=== PATIENT | male | born 1940 | race Caucasian/White ===

== ENCOUNTER 2017-12-11 15:13 | Observation (INO) ==
--- NOTE | 2017-12-11 15:23 | ED ---
HPI General Chief Complaint: Syncope Stated Complaint: Cardiac Time Seen by Provider: 12/11/17 15:16 Source: patient Mode of arrival: ambulatory Limitations: no limitations History of Present Illness HPI narrative: Patient arrived via private vehicle driven by his family, apparently while he was at a course trying to just practices golf swing with a bucket of balls, he got dizzy and fell over 3 different times and people that were standing standing by were about to call 911 but he just called his family that was just in the lobby of the golf course. Patient was brought into the emergency department for further evaluation. Patient does complain of a little bit of heart palpitations but it just comes and goes. Patient denies any headache visual changes chest pain back pain or abdominal pain. Patient denies any recent nausea vomiting diarrhea. However during the these episodes. The patient got very diaphoretic according to the family MD complaint: felt faint and almost passed out Onset (ago): minute(s) (30) Prodromal symptoms: lightheaded and palpitations Witnessed: yes - by bystander Context: other Injuries sustained associated with event: none Current symptoms: none Treatments prior to arrival: none Related Data Home Medications Medication Instructions Recorded Confirmed diclofenac sodium mg PO BID 12/11/17 levothyroxine mcg PO DAILY 12/11/17 lisinopril 5 mg PO DAILY 12/11/17 12/11/17 Allergies Allergy/AdvReac Type Severity Reaction Status Date / Time No Known Allergies Allergy Unverified 12/11/17 15:24 Review of Systems ROS: all other systems reviewed are negative PMFSH History History Provided By: Patient Medical History Medical History Hypercholesterolemia (Acute) Hypertension (Acute) Surgical History Surgical History History of left hip replacement (Acute) History of right knee surgery (Acute) Social History Social History Substance History: No History of Abuse Smoking Status: Never smoker How Often Do You Have a Drink Containing Alcohol: Never Recent Travel in [facility] within the Last 8 Weeks: No Recent Out of Country Travel within the Last 8 Weeks: No Exam Narrative Exam Narrative: GENERAL: Well-nourished, well-developed patient in no apparent distress. SKIN: Warm and dry. HEAD: Atraumatic. Normocephalic. EYES: Pupils equal and round. No scleral icterus. No injection or drainage. ENT: No nasal bleeding or discharge. Mucous membranes pink and moist. NECK: Trachea midline. No JVD. CARDIOVASCULAR: Regular rate and rhythm. no rubs or gallops RESPIRATORY: No accessory muscle use. Clear to auscultation. Breath sounds equal bilaterally. GASTROINTESTINAL: Abdomen soft, non-tender, nondistended. No rebound or guarding MUSCULOSKELETAL: Extremities without clubbing, cyanosis, or edema. No obvious deformities. NEUROLOGICAL: Awake and alert. No obvious cranial nerve deficits. Motor grossly within normal limits. Five out of 5 muscle strength in the arms and legs. Normal speech. PSYCHIATRIC: Appropriate mood and affect; insight and judgment normal. Course Initial Documented Vital Signs Temperature 98 F 12/11/17 15:15 Pulse Rate 93 H 12/11/17 15:15 Respiratory Rate 18 12/11/17 15:15 Blood Pressure 163/96 H 12/11/17 15:15 Pulse Oximetry 94 L 12/11/17 15:15 Last Documented Vital Signs Temperature 98 F 12/11/17 15:24 Pulse Rate 82 12/11/17 15:26 Respiratory Rate 14 12/11/17 15:26 Blood Pressure 143/65 H 12/11/17 15:26 Pulse Oximetry 95 12/11/17 15:35 Medical Decision Making MDM Narrative Medical Screen Exam Complete: Yes Emergency Medical Condition: Yes Differential Diagnosis Differential Diagnosis: Intracranial hemorrhage versus brain mass versus TIA versus non-STEMI versus STEMI versus arrhythmia versus syncope Medical Records Medical records reviewed: Yes I reviewed the patient's medical records. Patient has a history of hypothyroidism, hypertension, hyperlipidemia, and is on Medicaid oral days 3. Patient denies any cardiac surgeries. Patient does have a history of an appendectomy right knee replacement and left hip replacement. Lab Data Lab results reviewed: Yes I reviewed the patient's lab results. ECG Data EKG Prior to Arrival: No Attestation: I personally reviewed and interpreted this ECG as follows: Prior ECG tracings: not available for review Interpretation: Normal sinus rhythm with 82 bpm, frequent PACs. No ST elevation OH pattern noted. Discharge Plan Discharge Disposition Patient Disposition: 30 Still Patient Discharge Condition Condition: Stable Discharge Details Diagnosis: Syncope Physicians Team ED Provider: Alo Triana Rxs /Orders / Referrals /Forms Prescriptions: No Action levothyroxine 75 mcg Tablet PO DAILY RF: 0 lisinopril 5 mg Tablet 5 mg PO DAILY RF: 0 diclofenac sodium 75 mg Tablet,Delayed Release (Dr/Ec) PO BID RF: 0 Status ED Status: With Doctor
[2017-12-11 16:08] LABS: Baso # (Auto) 0.1 th/mm3 (0.0-0.2); Baso % (Auto) 1.2 % (0.0-2.0); Eos # (Auto) 0.3 th/mm3 (0.0-0.4); Eos % (Auto) 3.6 % (0.0-4.0); Hematocrit 42.6 % (39.0-51.0); Hemoglobin 14.4 gm/dL (13.0-17.0); Lymph # (Auto) 2.6 th/mm3 (1.0-4.8); Lymph % (Auto) 33.8 % (9.0-44.0); Mean Corpuscular HGB Conc 33.7 % (32.0-36.0); Mean Corpuscular Hemoglobin 29.6 pg (27.0-34.0); Mean Corpuscular Volume 87.9 fL (80.0-100.0); Mean Platelet Volume 10.3 fL (7.0-11.0); Mono # (Auto) 0.7 th/mm3 (0.0-0.9); Mono % (Auto) 8.9 % (0.0-8.0); Neut # (Auto) 4.1 th/mm3 (1.8-7.7); Neut % (Auto) 52.5 % (16.0-70.0); Platelet Count 194 th/mm3 (150-450); Red Blood Count 4.84 mil/mm3 (4.50-5.90); Red Cell Distribution Width 15.8 % (11.6-17.2); White Blood Count 7.7 th/mm3 (4.0-11.0)
[2017-12-11 16:23] LABS: Activated Partial Thrombo Time 22.3 sec (24.3-30.1); Prothrombin Time 10.2 sec (9.8-11.6)
[2017-12-11 16:27] LABS: Alkaline Phosphatase 101 U/L (45-117); Total Protein 7.9 g/dL (6.4-8.2)
[2017-12-11 16:30] LABS: Alanine Aminotransferase 20 U/L (12-78); Albumin 3.9 g/dL (3.4-5.0); Anion Gap 8 meq/L (5-15); Aspartate Aminotransferase 19 U/L (15-37); Blood Urea Nitrogen 22 mg/dL (7-18); Calcium 8.1 mg/dL (8.5-10.1); Carbon Dioxide 25.8 meq/L (21.0-32.0); Chloride 108 meq/L (98-107); Glomerular Filtration Rate 46 mL/min (>89); Glucose,Random 107 mg/dL (74-106); Potassium 3.6 meq/L (3.5-5.1); Sodium 142 meq/L (136-145)
[2017-12-11] MEDS ORDERED: Sod Chloride 0.9% Inj 1,000 ML IV.SIG ONE (17:23)
[2017-12-11] MEDS ORDERED: Bisacodyl 10 MG Supp RECTAL PRN (17:27)
[2017-12-11] MEDS ORDERED: Acetaminophen 325 MG Tablet PO PRN (17:27)
--- NOTE | 2017-12-11 17:56 | P.HPIM ---
History of Present Illness Service: [facility] Primary Care Physician: UNKNOWN Chief Complaint: Syncope History of Present Illness: Patient is a 77-year-old male who came by his own private vehicle driven by his family. Patient was standing on the practice range about to take some practice golf swings with a bucket of balls when he bent over and got dizzy and fell down at least 3 times. Bystanders wanted to call 911 but he called his family and went to the lobby. The golf course. Patient was brought into the emergency department by family for further evaluation. Did have some heart palpitations. But comes and goes. Denies any headache, denies any visual changes, denies any chest pain, denies any back pain, denies any abdominal pain. Patient denies any nausea, vomiting, or diarrhea. She became very diaphoretic during the episodes. He felt faint and passed out. He felt lightheaded and some palpitations. Has never had anything like this before Past medical history is significant for osteoarthritis, hypothyroidism, hypertension and hypercholesterolemia. Review of Systems All other systems reviewed negative except as stated in HPI [facility] - History History Provided By: Patient - Medical History Medical History: Medical History (Last Updated 12/11/17 @ 17:51 by Zheng Bolivar DO) Osteoarthritis (Acute) Hypothyroidism (Acute) Hypercholesterolemia (Acute) Hypertension (Acute) - Surgical History Surgical History: Surgical History (Last Updated 12/11/17 @ 17:51 by Zheng Bolivar DO) History of appendectomy (Acute) History of tonsillectomy (Acute) History of left hip replacement (Acute) History of right knee surgery (Acute) - Family History Family History: Family History (Last Updated 12/11/17 @ 17:51 by Zheng Bolivar DO) Other Family history of hypertension - Tobacco History Second Hand Smoke Exposure: No Tobacco Use In Past 30 Days: No Smoking Status: Never smoker - Alcohol History How Often Do You Have a Drink Containing Alcohol: Never - Substance Use History Substance History: No History of Abuse - Travel History History of Recent Travel: No Recent Travel in the [place] Within the Last 8 Weeks: No Recent Travel Out of the Country Within the Last 8 Weeks: No - Immunization History Tetanus Immunization: <5 Years Hx Influenza Vaccine This Season: Yes Medications and Allergies Active Medications: Active Medications Acetaminophen (Tylenol) 650 mg PO Q4H PRN PRN Reason: Temp > 100.4 Al Hydroxide/Mg Hydroxide (Milk Of Magnesia Liq) 30 ml PO Q12H PRN PRN Reason: Mild Constipation Bisacodyl (Dulcolax Supp) 10 mg RECTAL DAILY PRN PRN Reason: SEVERE CONSITIPATION Heparin Sodium (Porcine) (Heparin Inj) 5,000 units SQ Q12H ASIA Sodium Chloride (Ns Inj) 1,000 mls @ 100 mls/hr IV.CONT .Q10H ASIA Lactulose (Lactulose Liq) 30 ml PO DAILY PRN PRN Reason: SEVERE CONSITIPATION Levothyroxine Sodium (Synthroid) 75 mcg PO DAILY@0600 ASIA Lisinopril (Prinivil) 5 mg PO DAILY ASIA Meclizine HCl (Antivert) 25 mg PO Q8H PRN PRN Reason: DIZZINESS Ondansetron HCl (Zofran Inj) 4 mg IV.PUSH Q6H PRN PRN Reason: NAUSEA OR VOMITING Senna/Docusate Sodium (Jess-Colace) 1 tab PO BID [facility] Sennosides (Senokot) 17.2 mg PO Q12H PRN PRN Reason: Moderate Constipation Allergies Allergy/AdvReac Type Severity Reaction Status Date / Time No Known Allergies Allergy Unverified 12/11/17 15:24 Home Medications Medication Instructions Recorded Confirmed Type diclofenac sodium mg PO BID 12/11/17 History levothyroxine mcg PO DAILY 12/11/17 History lisinopril 5 mg PO DAILY 12/11/17 12/11/17 History Exam Vital signs: Vital Signs 12/11/17 15:15 12/11/17 15:24 12/11/17 15:26 Temperature 98 F 98 F Pulse Rate 93 H 77 82 Respiratory Rate 18 18 14 Blood Pressure 163/96 H 163/96 H 143/65 H Pulse Oximetry 94 L 94 L 94 L 12/11/17 15:35 12/11/17 16:54 Temperature Pulse Rate Respiratory Rate Blood Pressure Pulse Oximetry 95 95 Intake & Output 12/10/17 12/11/17 12/11/17 18:59 06:59 18:59 Weight 100.698 kg Narrative: GENERAL: Awake alert and oriented 3 talkative and cooperative SKIN: Warm and dry. HEAD: Atraumatic. Normocephalic. EYES: Pupils equal and round. No scleral icterus. No injection or drainage. EOMI ENT: No nasal bleeding or discharge. Mucous membranes pink and moist. Tongue is midline NECK: Trachea midline. No JVD. Supple CARDIOVASCULAR: IRRegular rate and rhythm. S1-S2 no S3 or S4 some sinus arrhythmia/bigeminy RESPIRATORY: No accessory muscle use. Clear to auscultation. Breath sounds equal bilaterally. GASTROINTESTINAL: Abdomen soft, non-tender, nondistended. Hepatic and splenic margins not palpable. Obese MUSCULOSKELETAL: Extremities without clubbing, cyanosis, or edema. No obvious deformities. NEUROLOGICAL: Awake and alert. No obvious cranial nerve deficits. Motor grossly within normal limits. Five out of 5 muscle strength in the arms and legs. Normal speech. Has some dizziness upon sitting up PSYCHIATRIC: Appropriate mood and affect; insight and judgment normal. Results - Labs CBC & Chem 7: 12/11/17 15:37 12/11/17 15:37 Labs: Short CBC 12/11/17 Range/Units 15:37 WBC 7.7 (4.0-11.0) th/mm3 Hgb 14.4 (13.0-17.0) gm/dL Hct 42.6 (39.0-51.0) % Plt Count 194 (150-450) th/mm3 BMP 12/11/17 15:37 Sodium 142 Potassium 3.6 Chloride 108 H Carbon Dioxide 25.8 BUN 22 H Creatinine 1.48 H Calcium 8.1 L Cardiac Enzymes 12/11/17 Range/Units 15:37 Troponin I Less than 0.02 L (0.02-0.05) ng/mL Liver Function 12/11/17 Range/Units 15:37 Total Bilirubin 0.7 (0.2-1.0) mg/dL AST 19 (15-37) U/L ALT 20 (12-78) U/L Alkaline Phosphatase 101 (45-117) U/L Albumin 3.9 (3.4-5.0) g/dL Caprini VTE Risk Assessment Caprini VTE Risk Assessment: Moderate/High Risk (score >= 2) Caprini Risk Assessment Model: Point Value = 1 Point Value = 2 Point Value = 3 Point Value = 5 Age 41-60 Minor surgery BMI > 25 kg/m2 Swollen legs Varicose veins or History of unexplained or recurrent spontaneous Oral contraceptives or hormone replacement Sepsis (< 1 month) Serious lung disease, including pneumonia (< 1 month) Abnormal pulmonary function Acute myocardial infarction Congestive heart failure (< 1 month) History of inflammatory bowel disease Medical patient at bed rest Age 61-74 Arthroscopic surgery Major open surgery (> 45 min) Laparoscopic surgery (> 45 min) Malignancy Confined to bed (> 72 hours) Immobilizing plaster cast Central venous access Age >= 75 History of VTE Family history of VTE Factor V Leiden Prothrombin [id number] Lupus anticoagulant Anticardiolipin antibodies Elevated serum homocysteine Heparin-induced thrombocytopenia Other congenital or acquired thrombophilia Stroke (< 1 month) Elective arthroplasty Hip, pelvis, or leg fracture Acute spinal cord injury (< 1 month) Prophylaxis Regimen: Total Risk Factor Score Risk Level Prophylaxis Regimen 0-1 Low Early ambulation 2 Moderate Order ONE of the following: *Sequential Compression Device (SCD) *Heparin 5000 units SQ BID 3-4 Higher Order ONE of the following medications: *Heparin 5000 units SQ TID *Enoxaparin/Lovenox 40 mg SQ daily (WT < 150 kg, CrCl > 30 mL/min) *Enoxaparin/Lovenox 30 mg SQ daily (WT < 150 kg, CrCl > 10-29 mL/min) *Enoxaparin/Lovenox 30 mg SQ BID (WT < 150 kg, CrCl > 30 mL/min) AND/OR *Sequential Compression Device (SCD) 5 or more Highest Order ONE of the following medications: *Heparin 5000 units SQ TID (Preferred with Epidurals) *Enoxaparin/Lovenox 40 mg SQ daily (WT < 150 kg, CrCl > 30 mL/min) *Enoxaparin/Lovenox 30 mg SQ daily (WT < 150 kg, CrCl > 10-29 mL/min) *Enoxaparin/Lovenox 30 mg SQ BID (WT < 150 kg, CrCl > 30 mL/min) AND *Sequential Compression Device (SCD) Assessment and Plan - Plan Syncope -With possible prodrome -With sweating and diaphoresis -With still having some dizziness on motion We will check an echo, and carotid Dopplers A.m. labs Fasting lipids Consult Dr. FIERRO We will trend troponins and cardiac enzymes Check labs Orthostasis will check orthostatic hypotension Hypertension by history stable we will give fluids currently on low-dose lisinopril Hypothyroidism on Synthroid replacement will check a TSH and a free T4 Osteoarthritis status post right total knee and left hip surgery on chronic medications GI prophylaxis DVT prophylaxis Code Status: Full code Discussed Condition With: RN and patient and emergency room physician and family Discharge Planning: Pending clearance by cardiology improvement of symptoms
[2017-12-11] MEDS: Heparin - SQ 10,000 UNITS/ML Vial SQ SCH (17:59)
[2017-12-11] MEDS: Sod Chloride 0.9% Inj 1,000 ML IV.CONT SCH (17:59)
--- NOTE | 2017-12-11 18:18 | CT ---
EXAM DATE: 12/11/2017 6:13 PM EDT AGE/SEX: 77 years / Male INDICATIONS: Dizziness. CLINICAL DATA: This is the patient's initial encounter. Patient reports that signs and symptoms have been present for 1 day and indicates a pain score of 0/10. MEDICAL/SURGICAL HISTORY: Hypertension. . Left hip replacement RADIATION DOSE: 55.25 CTDI (mGy) ;Tabletop exam COMPARISON: No prior exams available for comparison. TECHNIQUE: CT of the head without contrast. Using automated exposure control and adjustment of the mA and/or kV according to patient size, radiation dose was kept as low as reasonably achievable to ob tain optimal diagnostic quality images. DICOM format image data is available electronically for revi ew and comparison. FINDINGS: Cerebrum: Moderate diffuse cerebral atrophy. The ventricles are normal for degree of atrophy. No cristóbal dence of midline shift, mass lesion, hemorrhage or acute infarction. No extraaxial fluid collections are seen. Posterior Fossa: The cerebellum and brainstem are intact. The 4th ventricle is midline. The cerebe llopontine angle is unremarkable. Extracranial: The visualized portion of the orbits is intact. Skull: The calvaria is intact. No evidence of skull fracture. CONCLUSION: 1. Senescent changes without acute intracranial abnormality. . Electronically signed by: Jakub Araujo MD 12/11/2017 6:16 PM EDT
--- NOTE | 2017-12-11 18:35 | CT ---
EXAM DATE: 12/11/2017 6:28 PM EDT AGE/SEX: 77 years / Male INDICATIONS: Dizziness. Recent knee surgery. CLINICAL DATA: This is the patient's initial encounter. Patient reports that signs and symptoms have been present for 1 day and indicates a pain score of 0/10. MEDICAL/SURGICAL HISTORY: Hypertension. . Left hip replacement Right knee surgery RADIATION DOSE: 23.10 CTDI (mGy) COMPARISON: No prior exams available for comparison. TECHNIQUE: Volumetric scanning was performed using a multi-row detector CT scanner during bolus infu michael of 78 ml Omnipaque 350 (iohexol) nonionic water-soluble contrast as a single exam dose. The lita a was post processed with a variety of visualization algorithms including full volume maximum intensi ty projection and sliding thin slab reformation. Using automated exposure control and adjustment of t he mA and/or kV according to patient size, radiation dose was kept as low as reasonably achievable to obtain optimal diagnostic quality images. DICOM format image data is available electronically for r eview and comparison. FINDINGS: Pulmonary Arteries: No filling defects are seen in the pulmonary arteries out to the subsegmental ve ssels. The left and right pulmonary arteries are normal in diameter. Lung: No infiltrates or nodules seen. Mild right basilar atelectasis. Effusion: None. Mediastinum: No evidence of mediastinal or hilar adenopathy. Other: The axilla is unremarkable. Prominent amount of fat in the diaphragmatic hiatus. CONCLUSION: 1. The study is negative for pulmonary embolism. Electronically signed by: Cristi Sharpe MD 12/11/2017 6:34 PM EDT
[2017-12-11 19:16] LABS: Creatine Kinase 145 U/L (39-308)
[2017-12-11 21:18] LABS: Bilirubin,Urine Negative (Negative); Clarity,Urine Clear (Clear); Color,Urine Yellow (Yellw/Straw); Glucose,Urine (UA) Negative (Negative); Leukocyte Esterase,Urine Negative (Negative); Nitrite,Urine Negative (Negative); Specific Gravity,Urine 1.044 (1.002-1.035); Squamous Epithelial Cell,Urine <1 /hpf (0-5)
[2017-12-11] MEDS: Senna/Docusate Sodium 8.6/50 MG Tablet PO SCH (23:50)
[2017-12-11] MEDS: Famotidine 20 MG Tablet PO SCH (23:50)
[2017-12-12 03:02] LABS: Baso # (Auto) 0.1 th/mm3 (0.0-0.2); Baso % (Auto) 0.9 % (0.0-2.0); Eos # (Auto) 0.2 th/mm3 (0.0-0.4); Eos % (Auto) 3.1 % (0.0-4.0); Hematocrit 39.3 % (39.0-51.0); Lymph # (Auto) 1.9 th/mm3 (1.0-4.8); Mean Corpuscular HGB Conc 33.1 % (32.0-36.0); Mean Corpuscular Volume 87.8 fL (80.0-100.0); Mean Platelet Volume 9.7 fL (7.0-11.0); Mono # (Auto) 0.6 th/mm3 (0.0-0.9); Mono % (Auto) 9.9 % (0.0-8.0); Neut # (Auto) 3.7 th/mm3 (1.8-7.7); Neut % (Auto) 57.1 % (16.0-70.0); Platelet Count 157 th/mm3 (150-450); Red Blood Count 4.47 mil/mm3 (4.50-5.90); Red Cell Distribution Width 15.9 % (11.6-17.2); White Blood Count 6.5 th/mm3 (4.0-11.0)
[2017-12-12 03:06] LABS: INR 1.1 Ratio; Prothrombin Time 10.9 sec (9.8-11.6)
[2017-12-12 03:20] LABS: Alanine Aminotransferase 16 U/L (12-78); Albumin 3.3 g/dL (3.4-5.0); Anion Gap 5 meq/L (5-15); Aspartate Aminotransferase 12 U/L (15-37); Blood Urea Nitrogen 18 mg/dL (7-18); Carbon Dioxide 28.2 meq/L (21.0-32.0); Chloride 111 meq/L (98-107); Cholesterol 185 mg/dL (120-200); Glomerular Filtration Rate 58 mL/min (>89); Glucose,Random 91 mg/dL (74-106); Magnesium 2.2 mg/dL (1.5-2.5); Phosphorus 2.9 mg/dL (2.5-4.9); Sodium 144 meq/L (136-145)
[2017-12-12 03:24] LABS: Creatine Kinase 148 U/L (39-308)
[2017-12-12 03:45] LABS: Alkaline Phosphatase 78 U/L (45-117); Chol/HDL Ratio 6.02 Ratio; Free T4 (Free Thyroxine) 0.99 ng/dL (0.76-1.46); HDL Cholesterol 30.7 mg/dL (40.0-60.0); LDL Cholesterol,Calculated 119 mg/dL (0-99); Total Protein 6.6 g/dL (6.4-8.2); Triglycerides 179 mg/dL (42-150)
[2017-12-12] MEDS: Sod Chloride 0.9% Inj 1,000 ML IV.CONT SCH ×3 (04:28→21:12)
[2017-12-12] MEDS: Levothyroxine 75 MCG Tablet PO SCH (05:56)
[2017-12-12] MEDS: Heparin - SQ 10,000 UNITS/ML Vial SQ SCH ×2 (05:56→18:08)
[2017-12-12] MEDS: Senna/Docusate Sodium 8.6/50 MG Tablet PO SCH ×2 (10:29→21:11)
[2017-12-12] MEDS: Lisinopril 5 MG Tablet PO SCH (10:29)
[2017-12-12] MEDS: Famotidine 20 MG Tablet PO SCH ×2 (10:29→21:11)
--- NOTE | 2017-12-12 10:44 | US ---
EXAM DATE: 12/12/2017 10:35 AM EDT AGE/SEX: 77 years / Male INDICATIONS: Syncope. CLINICAL DATA: This is the patient's initial encounter. Patient reports that signs and symptoms have been present for 1 day and indicates a pain score of 0/10. MEDICAL/SURGICAL HISTORY: Hypercholesterolemia. Hypertension. Osteoarthritis. Hypothyroidism . Appendectomy. Tonsillectomy. Left hip replacement. Right knee surgery. COMPARISON: [facility], US CAROTID ARTERIES, 08/02/2011. . VELOCITY PARAMETERS: ICA/CCA Ratio: Right 1.7 , Left 1.3 ICA: Right 118 cm/sec, Left 115 cm/sec CCA: Right 68 cm/sec, Left 91 cm/sec ECA: Right 124 cm/sec, Left 179 cm/sec Vertebral: Right 39 cm/sec antegrade, Left 53 cm/sec antegrade FINDINGS: Right Carotid: There is mild noncalcified plaque in the carotid bulb. Spectral broadening is present . Left Carotid: There is scattered mild noncalcified plaque in the common carotid artery and mild to m oderate calcified and noncalcified plaque in the carotid bulb and proximal internal carotid artery. T he waveforms are within normal limits. Other: There is a hypoechoic solid and cystic nodule in the right lobe of the thyroid gland measurin g approximately 1.2 x 1.2 x 1.3 cm. On the prior examination is not available for visual comparison b ut a 1.3 cm a nodule was also described in the right lobe on that examination. CONCLUSION: 1. Right Internal Carotid Artery: No significant stenosis or atherosclerotic plaque is visualized. 2. Left Internal Carotid Artery: Findings indicate <50% stenosis. 3. Solid and cystic 1.3 cm nodule is present in the right lobe the thyroid gland. Although not avail able for visual comparison, the 2012 examination also reported a 1.3 cm right thyroid nodule. Conside r correlating with any other imaging studies to confirm stability. Electronically signed by: Wai Aviles MD 12/12/2017 10:43 AM EDT
[2017-12-12 14:38] LABS: Hemoglobin A1c 6.1 % (4.3-6.0)
--- NOTE | 2017-12-12 16:35 | ECHRPT ---
Indication: HYPERTENSIVE HEART DISEASE CONCLUSIONS The left ventricular systolic function is normal with an estimated ejection fraction in the range of 55-60%. Normal left ventricular size. Wall thickness is normal. No regional wall motion abnormalities are present. Trace mitral valve regurgitation. Diffuse calcification of the aortic valve. Trace aortic valve regurgitation. BP: / HR: Rhythm: Sinus MEASUREMENTS (Male / Female) Normal Values Technical Quality:Good 2D ECHO LV Diastolic Diameter PLAX 4.4 cm 4.2 - 5.9 / 3.9 - 5.3 cm LV Systolic Diameter PLAX 3.2 cm IVS Diastolic Thickness 1.1 cm 0.6 - 1.0 / 0.6 - 0.9 cm LVPW Diastolic Thickness 1.1 cm 0.6 - 1.0 / 0.6 - 0.9 cm LV Relative Wall Thickness 0.5 RV Internal Dim ED PLAX 2.9 cm LVOT Diameter 2.0 cm LA Systolic Diameter LX 3.8 cm 3.0 - 4.0 / 2.7 - 3.8 cm LV Ejection Fraction MOD 4C 60.1 % LV Ejection Fraction 4C AL 62.3 % M-MODE Aortic Root Diameter MM 2.6 cm LA Systolic Diameter MM 3.8 cm LA Ao Ratio MM 1.5 AV Cusp Separation MM 1.3 cm DOPPLER AV Peak Velocity 183.0 cm/s AV Peak Gradient 13.4 mmHg AI Peak Velocity 265.0 cm/s AI Peak Gradient 28.1 mmHg AI Pressure Half Time 970.0 ms LVOT Peak Velocity 92.8 cm/s LVOT Peak Gradient 3.4 mmHg AV Area Cont Eq pk 1.6 cm MV Area PHT 5.2 cm Mitral E Point Velocity 96.7 cm/s Mitral A Point Velocity 95.8 cm/s Mitral E to A Ratio 1.0 LV E' Lateral Velocity 9.0 cm/s Mitral E to LV E' Lateral Ratio 10.8 LV E' Septal Velocity 7.6 cm/s Mitral E to LV E' Septal Ratio 12.7 TR Peak Velocity 187.0 cm/s TR Peak Gradient 14.0 mmHg Right Atrial Pressure 10.0 mmHg Pulmonary Artery Systolic Pressu 24.0 mmHg Right Ventricular Systolic Press 24.0 mmHg PV Peak Velocity 74.7 cm/s PV Peak Gradient 2.2 mmHg FINDINGS LEFT VENTRICLE The left ventricular systolic function is normal with an estimated ejection fraction in the range of 55-60%. Normal left ventricular size. Wall thickness is normal. No regional wall motion abnormalities are present. RIGHT VENTRICLE Normal right ventricular size and systolic function. LEFT ATRIUM The left atrial size is normal. RIGHT ATRIUM The right atrial size is normal. ATRIAL SEPTUM Normal atrial septal thickness without atrial level shunting by limited color doppler interrogation. AORTA The aortic root and proximal ascending aorta are normal in size on limited imaging. MITRAL VALVE Structurally normal mitral valve. Trace mitral valve regurgitation. AORTIC VALVE Trileaflet aortic valve. Diffuse calcification of the aortic valve. Trace aortic valve regurgitation. TRICUSPID VALVE Structurally normal tricuspid valve. PULMONARY VALVE No pulmonary valve regurgitation or stenosis. VESSELS The inferior vena cava is normal in size. PERICARDIUM No pericardial effusion. Humaira Alexandre MD, FACC (Electronically Signed) Final Date:12 December 2017 16:33
--- NOTE | 2017-12-12 17:21 | ECG ---
Date Performed: 12/11/2017 Time Performed: 18:37:58 PTAGE: 77 years EKG: Sinus rhythm INFERIOR MYOCARDIAL INFARCTION ABNORMAL ECG PREVIOUS TRACING : 12/11/2017 15.12 Since the previous tracing, no significant change noted DOCTOR: Dain Marlow Interpretating Date/Time 12/12/2017 17:20:34
--- NOTE | 2017-12-12 17:21 | P.PNIM ---
Subjective Interval history: No recurrence of syncopal or presyncopal symptoms. Patient has had intermittent tachycardia throughout the day. Echocardiogram pending. Cardiology evaluated this patient this afternoon. Monitoring overnight through tomorrow as planned. D-dimer ordered. Physical Exam Vital signs: Vital Signs 12/11/17 17:25 12/11/17 19:47 12/11/17 22:30 Temperature 98.3 F Pulse Rate 65 58 L 69 Respiratory Rate 20 18 18 Blood Pressure 157/77 H 153/71 H 144/79 H Pulse Oximetry 96 97 12/12/17 00:10 12/12/17 00:49 12/12/17 03:50 Temperature 98.2 F 98.6 F Pulse Rate 55 L 58 L 56 L Respiratory Rate 16 16 Blood Pressure 151/88 H 154/82 H Pulse Oximetry 12/12/17 08:00 12/12/17 12:00 12/12/17 16:00 Temperature 97.7 F 97.8 F 97.9 F Pulse Rate 61 76 74 Respiratory Rate 18 18 20 Blood Pressure 179/88 H 189/90 H 137/65 Pulse Oximetry 96 93 L 94 L Intake & Output 12/11/17 12/12/17 12/12/17 18:59 06:59 18:59 Intake Total 1640 / 1640 640 / 640 Output Total 400 / 400 550 / 550 Balance 1240 / 1240 90 / 90 Weight 100.698 kg Intake: IV 1400 / 1400 NS Inj 1,000 ML @ 100 mls/hr IV 400 / 400 .CONT .Q10H [facility] Rx#:[id number] Oral 240 / 240 640 / 640 Output: Urine 400 / 400 550 / 550 Other: Date of Last Bowel Movement 12/10/18 # Bowel Movements 0 Narrative: GENERAL: NAD, A&Ox3 HEAD: Normocephalic. NECK: Supple, trachea midline. No lymphadenopathy. EYES: No scleral icterus. No injection or drainage. CARDIOVASCULAR: Regular rate and rhythm without murmurs, gallops, or rubs. RESPIRATORY: Breath sounds equal bilaterally. No accessory muscle use. GASTROINTESTINAL: Abdomen soft, non-tender, nondistended. MUSCULOSKELETAL: No cyanosis, or edema. SKIN: Warm and dry. NEURO: No focal neurological deficits. Results - Labs CBC & Chem 7: 12/12/17 02:36 12/12/17 02:36 Laboratory Results - last 24 hr 12/11/17 12/11/17 12/11/17 15:37 18:00 20:45 WBC RBC Hgb Hct MCV MCH MCHC RDW Plt Count MPV Neut % (Auto) Lymph % (Auto) Irion % (Auto) Eos % (Auto) Baso % (Auto) Neut # (Auto) Lymph # (Auto) Irion # (Auto) Eos # (Auto) Baso # (Auto) WBC Differential Differential Comment PT INR Sodium Potassium Chloride Carbon Dioxide Anion Gap BUN Creatinine Estimated GFR Random Glucose Hemoglobin A1c Calcium Phosphorus Magnesium Total Bilirubin AST ALT Alkaline Phosphatase Total Creatine Kinase 145 Troponin I Less than 0.02 L B-Natriuretic Peptide 7 Total Protein Albumin Triglycerides Cholesterol LDL Cholesterol, Calc HDL Cholesterol Cholesterol/HDL Ratio TSH Free T4 Urine Color Yellow Urine Clarity Clear Urine pH 5.0 Ur Specific Nemo 1.044 H Urine Protein Negative Urine Glucose (UA) Negative Urine Ketones Negative Urine Occult Blood Negative Urine Nitrate Negative Urine Bilirubin Negative Urine Urobilinogen 2.0 H Ur Leukocyte Esterase Negative Urine RBC 1 Urine WBC Less than 1 Ur Squamous Epith Cells <1 Micro UA Comment Culture not ind Urine Culture Comments Culture not ind 12/12/17 12/12/17 12/12/17 02:36 02:36 02:36 WBC 6.5 RBC 4.47 L Hgb 13.0 Hct 39.3 MCV 87.8 MCH 29.0 MCHC 33.1 RDW 15.9 Plt Count 157 MPV 9.7 Neut % (Auto) 57.1 Lymph % (Auto) 29.0 Irion % (Auto) 9.9 H Eos % (Auto) 3.1 Baso % (Auto) 0.9 Neut # (Auto) 3.7 Lymph # (Auto) 1.9 Irion # (Auto) 0.6 Eos # (Auto) 0.2 Baso # (Auto) 0.1 WBC Differential . Differential Comment Auto diff final PT 10.9 INR 1.1 Sodium Potassium Chloride Carbon Dioxide Anion Gap BUN Creatinine Estimated GFR Random Glucose Hemoglobin A1c Calcium Phosphorus Magnesium Total Bilirubin AST ALT Alkaline Phosphatase Total Creatine Kinase 148 Troponin I Less than 0.02 L B-Natriuretic Peptide Total Protein Albumin Triglycerides Cholesterol LDL Cholesterol, Calc HDL Cholesterol Cholesterol/HDL Ratio TSH Free T4 Urine Color Urine Clarity Urine pH Ur Specific Nemo Urine Protein Urine Glucose (UA) Urine Ketones Urine Occult Blood Urine Nitrate Urine Bilirubin Urine Urobilinogen Ur Leukocyte Esterase Urine RBC Urine WBC Ur Squamous Epith Cells Micro UA Comment Urine Culture Comments 12/12/17 12/12/17 02:36 02:36 WBC RBC Hgb Hct MCV MCH MCHC RDW Plt Count MPV Neut % (Auto) Lymph % (Auto) Irion % (Auto) Eos % (Auto) Baso % (Auto) Neut # (Auto) Lymph # (Auto) Irion # (Auto) Eos # (Auto) Baso # (Auto) WBC Differential Differential Comment PT INR Sodium 144 Potassium 4.0 Chloride 111 H Carbon Dioxide 28.2 Anion Gap 5 BUN 18 Creatinine 1.21 Estimated GFR 58 L Random Glucose 91 Hemoglobin A1c 6.1 H Calcium 8.0 L Phosphorus 2.9 Magnesium 2.2 Total Bilirubin 0.7 AST 12 L ALT 16 Alkaline Phosphatase 78 Total Creatine Kinase Troponin I B-Natriuretic Peptide Total Protein 6.6 D Albumin 3.3 L D Triglycerides 179 H Cholesterol 185 LDL Cholesterol, Calc 119 H HDL Cholesterol 30.7 L Cholesterol/HDL Ratio 6.02 TSH 4.530 H Free T4 0.99 Urine Color Urine Clarity Urine pH Ur Specific Nemo Urine Protein Urine Glucose (UA) Urine Ketones Urine Occult Blood Urine Nitrate Urine Bilirubin Urine Urobilinogen Ur Leukocyte Esterase Urine RBC Urine WBC Ur Squamous Epith Cells Micro UA Comment Urine Culture Comments - Imaging Impressions Chest CTA 12/11/17 15:35 CONCLUSION: 1. The study is negative for pulmonary embolism. Head CT 12/11/17 15:35 CONCLUSION: 1. Senescent changes without acute intracranial abnormality. . Carotid Doppler Study 12/12/17 00:00 CONCLUSION: 1. Right Internal Carotid Artery: No significant stenosis or atherosclerotic plaque is visualized. 2. Left Internal Carotid Artery: Findings indicate <50% stenosis. 3. Solid and cystic 1.3 cm nodule is present in the right lobe the thyroid gland. Although not available for visual comparison, the 2012 examination also reported a 1.3 cm right thyroid nodule. Consider correlating with any other imaging studies to confirm stability. Assessment and Plan - Plan 77-year-old male admitted secondary to syncope/presyncope Syncope Recurrent tachycardia No evidence of ischemia Cardiology following Continue to monitor on telemetry Orthostasis monitoring Follow up echocardiogram Hypertension Lisinopril Hypothyroidism Continue Synthroid DVT prophylaxis SCDs
--- NOTE | 2017-12-12 17:21 | ECG ---
Date Performed: 12/11/2017 Time Performed: 15:12:42 PTAGE: 77 years EKG: Sinus rhythm WITH SHORT [place] INTERVAL WITH OCCASIONAL SUPRAVENTRICULAR PREMATURE COMPLEXES MINIMAL VOLTAGE CRITERIA FOR LVH, CONSIDER NORMAL VARIANT INFERIOR MYOCARDIAL INFARCTION ABNORMAL ECG PREVIOUS TRACING :07/27/2015 @11.24 Since the previous tracing, no significant change noted DOCTOR: Dain Marlow Interpretating Date/Time 12/12/2017 17:20:20
--- NOTE | 2017-12-12 17:21 | ECG ---
Date Performed: 12/11/2017 Time Performed: 23:49:49 PTAGE: 77 years EKG: SINUS BRADYCARDIA MARKED LEFT AXIS DEVIATION ABNORMAL ECG PREVIOUS TRACING : 12/11/2017 18.37 Since the previous tracing, no significant change noted DOCTOR: Dain Marlow Interpretating Date/Time 12/12/2017 17:20:45
--- NOTE | 2017-12-12 18:32 | P.CONCA ---
<Hanny Pollock Lorraine - Last Filed: 12/12/17 21:22> History of Present Illness Service: Cardiology Consult date: 12/12/17 Primary Care Provider: UNKNOWN Chief Complaint: Syncope History of Present Illness: Mr. Mera is a pleasant 77 year old gentleman who was last seen in our office in 2016. He has a history of hypertension, hyperlipidemia, diastolic dysfunction, hypothyroidism. Yesterday, he was hitting some golf balls at the driving range, experienced some dizziness, lightheadedness after bending over to place the balls. He apparently almost passed out three times. Bystanders wanted to call EMS but the patient refused. He went home and his insisted he come to the ED for further evaluation. He admits to not hydrating while out in the heat at the driving range. Had a few episodes of palpitations. Denies chest pain, shortness of breath. He has received IV hydration and is feeling better. Serial troponin have been negative. SBP 130-150 range. Carotid ultrasound with no significant stenosis. Echocardiogram is pending. He is currently resting in bed without distress. at bedside. Review of Systems All other systems reviewed negative except as stated in HPI PMFSH - History History Provided By: Patient - Medical History Medical History: Medical History (Last Reviewed 12/12/17 @ 08:38 by Maria L Riggins) Osteoarthritis (Acute) Hypothyroidism (Acute) Hypercholesterolemia (Acute) Hypertension (Acute) - Surgical History Surgical History: Surgical History (Last Reviewed 12/12/17 @ 08:38 by Maria L Riggins) History of appendectomy (Acute) History of tonsillectomy (Acute) History of left hip replacement (Acute) History of right knee surgery (Acute) - Family History Family History: Family History (Last Updated 12/11/17 @ 17:51 by Zheng Bolivar DO) Other Family history of hypertension - Tobacco History Second Hand Smoke Exposure: No Tobacco Use In Past 30 Days: No Smoking Status: Never smoker - Alcohol History How Often Do You Have a Drink Containing Alcohol: Monthly or less - Substance Use History Substance History: No History of Abuse - Travel History History of Recent Travel: No Recent Travel in the [place] Within the Last 8 Weeks: No Recent Travel Out of the Country Within the Last 8 Weeks: No - Immunization History Tetanus Immunization: <5 Years Hx Influenza Vaccine This Season: Yes Medications and Allergies Allergies Allergy/AdvReac Type Severity Reaction Status Date / Time No Known Allergies Allergy Unverified 12/11/17 15:24 Home Medications Medication Instructions Recorded Confirmed Type diclofenac sodium mg PO BID 12/11/17 History levothyroxine mcg PO DAILY 12/11/17 History lisinopril 5 mg PO DAILY 12/11/17 12/11/17 History pravastatin 40 mg PO DAILY 12/12/17 12/12/17 History Active Medications: Active Medications Acetaminophen (Tylenol) 650 mg PO Q4H PRN PRN Reason: Temp > 100.4 Al Hydroxide/Mg Hydroxide (Milk Of Magnesia Liq) 30 ml PO Q12H PRN PRN Reason: Mild Constipation Bisacodyl (Dulcolax Supp) 10 mg RECTAL DAILY PRN PRN Reason: SEVERE CONSITIPATION Clonidine HCl (Catapres) 0.1 mg PO Q6H PRN PRN Reason: SYS BP GREATER THAN 160 MMHG Famotidine (Pepcid) 10 mg PO BID [facility] Last Admin: 12/12/17 10:29 Dose: 10 mg Heparin Sodium (Porcine) (Heparin Inj) 5,000 units SQ Q12H [facility] Last Admin: 12/12/17 18:08 Dose: 5,000 units Sodium Chloride (Ns Inj) 1,000 mls @ 100 mls/hr IV.CONT .Q10H [facility] Last Admin: 12/12/17 18:10 Dose: 100 mls/hr Lactulose (Lactulose Liq) 30 ml PO DAILY PRN PRN Reason: SEVERE CONSITIPATION Levothyroxine Sodium (Synthroid) 75 mcg PO DAILY@0600 [facility] Last Admin: 12/12/17 05:56 Dose: 75 mcg Lisinopril (Prinivil) 5 mg PO DAILY [facility] Last Admin: 12/12/17 10:29 Dose: 5 mg Meclizine HCl (Antivert) 25 mg PO Q8H PRN PRN Reason: DIZZINESS Ondansetron HCl (Zofran Inj) 4 mg IV.PUSH Q6H PRN PRN Reason: NAUSEA OR VOMITING Senna/Docusate Sodium (Jess-Colace) 1 tab PO BID [facility] Last Admin: 12/12/17 10:29 Dose: 1 tab Sennosides (Senokot) 17.2 mg PO Q12H PRN PRN Reason: Moderate Constipation Exam Vital signs: Vital Signs 12/11/17 19:47 12/11/17 22:30 12/12/17 00:10 Temperature 98.3 F 98.2 F Pulse Rate 58 L 69 55 L Respiratory Rate 18 18 16 Blood Pressure 153/71 H 144/79 H 151/88 H Pulse Oximetry 97 12/12/17 00:49 12/12/17 03:50 12/12/17 08:00 Temperature 98.6 F 97.7 F Pulse Rate 58 L 56 L 61 Respiratory Rate 16 18 Blood Pressure 154/82 H 179/88 H Pulse Oximetry 96 12/12/17 12:00 12/12/17 16:00 Temperature 97.8 F 97.9 F Pulse Rate 76 74 Respiratory Rate 18 20 Blood Pressure 189/90 H 137/65 Pulse Oximetry 93 L 94 L Intake & Output 12/11/17 12/12/17 12/12/17 18:59 06:59 18:59 Intake Total 1640 / 1640 1620 / 1620 Output Total 400 / 400 550 / 550 Balance 1240 / 1240 1070 / 1070 Weight 100.698 kg Intake: IV 1400 / 1400 980 / 980 NS Inj 1,000 ML @ 100 mls/hr IV 400 / 400 980 / 980 .CONT .Q10H [facility] Rx#:[id number] Oral 240 / 240 640 / 640 Output: Urine 400 / 400 550 / 550 Other: Date of Last Bowel Movement 12/10/18 # Bowel Movements 0 Narrative: GENERAL: Awake, alert. No distress. SKIN: Warm and dry. HEAD: Atraumatic. Normocephalic. EYES: Pupils equal and round. No scleral icterus. No injection or drainage. EOMI ENT: No nasal bleeding or discharge. Mucous membranes pink and moist. Tongue is midline NECK: Trachea midline. No JVD. Supple CARDIOVASCULAR: Regular rate and rhythm. S1-S2. No murmurs. RESPIRATORY: No accessory muscle use. Clear to auscultation. Breath sounds equal bilaterally. GASTROINTESTINAL: Abdomen soft, non-tender, nondistended. Obese MUSCULOSKELETAL: Extremities without clubbing, cyanosis, or edema. No obvious deformities. NEUROLOGICAL: Awake and alert. No obvious cranial nerve deficits. Motor grossly within normal limits. Five out of 5 muscle strength in the arms and legs. Normal speech. PSYCHIATRIC: Appropriate mood and affect; insight and judgment normal. Results 12/12/17 02:36 12/12/17 02:36 Cardiac Enzymes 12/11/17 12/12/17 12/12/17 Range/Units 18:00 02:36 02:36 AST 12 L (15-37) U/L Troponin I Less than 0.02 L Less than 0.02 L (0.02-0.05) ng/mL Coagulation 12/12/17 Range/Units 02:36 PT 10.9 (9.8-11.6) sec Lipids 12/12/17 Range/Units 02:36 Triglycerides 179 H (42-150) mg/dL Cholesterol 185 (120-200) mg/dL HDL Cholesterol 30.7 L (40.0-60.0) mg/dL Cholesterol/HDL Ratio 6.02 Ratio CBC 12/12/17 Range/Units 02:36 WBC 6.5 (4.0-11.0) th/mm3 RBC 4.47 L (4.50-5.90) mil/mm3 Hgb 13.0 (13.0-17.0) gm/dL Hct 39.3 (39.0-51.0) % Plt Count 157 (150-450) th/mm3 Neut # (Auto) 3.7 (1.8-7.7) th/mm3 Lymph # (Auto) 1.9 (1.0-4.8) th/mm3 Falls # (Auto) 0.6 (0.0-0.9) th/mm3 Eos # (Auto) 0.2 (0.0-0.4) th/mm3 Baso # (Auto) 0.1 (0.0-0.2) th/mm3 Comprehensive Metabolic Panel 12/12/17 Range/Units 02:36 Sodium 144 (136-145) meq/L Potassium 4.0 (3.5-5.1) meq/L Chloride 111 H (98-107) meq/L Carbon Dioxide 28.2 (21.0-32.0) meq/L BUN 18 (7-18) mg/dL Creatinine 1.21 (0.60-1.30) mg/dL Calcium 8.0 L (8.5-10.1) mg/dL AST 12 L (15-37) U/L ALT 16 (12-78) U/L Alkaline Phosphatase 78 (45-117) U/L Total Protein 6.6 D (6.4-8.2) g/dL Albumin 3.3 L D (3.4-5.0) g/dL Intake and Output 12/12/17 12/12/17 12/12/17 06:59 14:59 22:59 Intake Total 1640 / 1640 980 / 980 640 / 640 Output Total 400 / 400 550 / 550 Balance 1240 / 1240 980 / 980 90 / 90 Intake: IV 1400 / 1400 980 / 980 NS Inj 1,000 ML @ 100 mls/hr IV 400 / 400 980 / 980 .CONT .Q10H [facility] Rx#:[id number] Oral 240 / 240 640 / 640 Output: Urine 400 / 400 550 / 550 Other: Date of Last Bowel Movement 12/10/18 # Bowel Movements 0 Assessment and Plan - Assessment (1) Syncope Code(s): R55 - Syncope and collapse Status: Acute (2) Hypothyroidism Code(s): E03.9 - Hypothyroidism, unspecified Status: Chronic (3) Hypercholesterolemia Code(s): E78.00 - Pure hypercholesterolemia, unspecified Status: Chronic (4) Hypertension Code(s): I10 - Essential (primary) hypertension Status: Chronic (5) Diastolic dysfunction without heart failure Code(s): I51.89 - Other ill-defined heart diseases Status: Chronic (6) Sinus tachycardia Code(s): R00.0 - Tachycardia, unspecified Status: Acute - Plan Syncope likely neurocardiogenic. Hydration was reviewed. Some sinus tachycardia with PACs today. Will check D-dimer to rule out PE. Echocardiogram is pending. If PE ruled out and EF is normal, patient may be discharged tomorrow if remains stable. Follow up in the office. Code Status: Full Discussed Condition With: <Tin Shanks - Last Filed: 12/13/17 10:00> History of Present Illness Primary Care Provider: UNKNOWN [facility] - Medical History Medical History: Medical History (Last Reviewed 12/12/17 @ 08:38 by Maria L Riggins) Osteoarthritis (Acute) Hypothyroidism (Acute) Hypercholesterolemia (Acute) Hypertension (Acute) - Surgical History Surgical History: Surgical History (Last Reviewed 12/12/17 @ 08:38 by Maria L Riggins) History of appendectomy (Acute) History of tonsillectomy (Acute) History of left hip replacement (Acute) History of right knee surgery (Acute) - Family History Family History: Family History (Last Updated 12/11/17 @ 17:51 by Zheng Bolivar DO) Other Family history of hypertension Medications and Allergies Active Medications: Active Medications Acetaminophen (Tylenol) 650 mg PO Q4H PRN PRN Reason: Temp > 100.4 Al Hydroxide/Mg Hydroxide (Milk Of Magnesia Liq) 30 ml PO Q12H PRN PRN Reason: Mild Constipation Bisacodyl (Dulcolax Supp) 10 mg RECTAL DAILY PRN PRN Reason: SEVERE CONSITIPATION Clonidine HCl (Catapres) 0.1 mg PO Q6H PRN PRN Reason: SYS BP GREATER THAN 160 MMHG Famotidine (Pepcid) 10 mg PO BID [facility] Last Admin: 12/13/17 08:31 Dose: 10 mg Heparin Sodium (Porcine) (Heparin Inj) 5,000 units SQ Q12H [facility] Last Admin: 12/13/17 06:11 Dose: 5,000 units Sodium Chloride (Ns Inj) 1,000 mls @ 100 mls/hr IV.CONT .Q10H [facility] Last Admin: 12/13/17 08:32 Dose: 100 mls/hr Lactulose (Lactulose Liq) 30 ml PO DAILY PRN PRN Reason: SEVERE CONSITIPATION Levothyroxine Sodium (Synthroid) 75 mcg PO DAILY@0600 [facility] Last Admin: 12/13/17 06:11 Dose: 75 mcg Lisinopril (Prinivil) 5 mg PO DAILY [facility] Last Admin: 12/13/17 08:31 Dose: 5 mg Meclizine HCl (Antivert) 25 mg PO Q8H PRN PRN Reason: DIZZINESS Ondansetron HCl (Zofran Inj) 4 mg IV.PUSH Q6H PRN PRN Reason: NAUSEA OR VOMITING Senna/Docusate Sodium (Jess-Colace) 1 tab PO BID [facility] Last Admin: 12/13/17 08:32 Dose: 1 tab Sennosides (Senokot) 17.2 mg PO Q12H PRN PRN Reason: Moderate Constipation Exam Vital signs: Vital Signs 12/12/17 12:00 12/12/17 16:00 12/12/17 20:00 Temperature 97.8 F 97.9 F 98.2 F Pulse Rate 76 74 64 Respiratory Rate 18 20 18 Blood Pressure 189/90 H 137/65 136/82 Pulse Oximetry 93 L 94 L 95 12/13/17 00:00 12/13/17 04:00 12/13/17 08:00 Temperature 97.4 F L 98.1 F 98.0 F Pulse Rate 56 L 53 L 61 Respiratory Rate 16 16 16 Blood Pressure 131/73 136/74 187/88 H Pulse Oximetry 97 96 97 Intake & Output 12/12/17 12/13/17 12/13/17 18:59 06:59 18:59 Intake Total 1620 / 1620 1240 / 1240 1000 / 1000 Output Total 550 / 550 450 / 450 Balance 1070 / 1070 790 / 790 1000 / 1000 Weight 100.7 kg Intake: IV 980 / 980 1000 / 1000 1000 / 1000 NS Inj 1,000 ML @ 100 mls/hr IV 980 / 980 1000 / 1000 1000 / 1000 .CONT .Q10H [facility] Rx#:[id number] Oral 640 / 640 240 / 240 Output: Urine 550 / 550 450 / 450 Other: # Voids 1 Date of Last Bowel Movement 12/12/17 # Bowel Movements 0 Weight On Admission 100.698 kg Results 12/12/17 02:36 12/12/17 02:36 Intake and Output 12/12/17 12/13/17 12/13/17 22:59 06:59 14:59 Intake Total 1640 / 1640 240 / 240 1000 / 1000 Output Total 550 / 550 450 / 450 Balance 1090 / 1090 -210 / -210 1000 / 1000 Intake: IV 1000 / 1000 1000 / 1000 NS Inj 1,000 ML @ 100 mls/hr IV 1000 / 1000 1000 / 1000 .CONT .Q10H [facility] Rx#:[id number] Oral 640 / 640 240 / 240 Output: Urine 550 / 550 450 / 450 Other: # Voids 1 Date of Last Bowel Movement 12/12/17 # Bowel Movements 0 Weight 100.7 kg 100.7 kg Weight On Admission 100.698 kg Assessment and Plan - Attending Attestation Pt. seen and examined. Suggestive of neurocardiogenic syncope. Echo will be checked. D dimer will be checked. Monitor on telemetry. Negative cardiac enzymes. <Hanny Pollock R - Last Filed: 12/12/17 21:22> (1) Syncope Qualifiers: Syncope type: unspecified Qualified Code(s): R55 - Syncope and collapse
[2017-12-13 00:17] VITALS: RESP 16
[2017-12-13] MEDS: Sod Chloride 0.9% Inj 1,000 ML IV.CONT SCH ×2 (01:28→08:32)
[2017-12-13] MEDS: Heparin - SQ 10,000 UNITS/ML Vial SQ SCH (06:11)
[2017-12-13] MEDS: Levothyroxine 75 MCG Tablet PO SCH (06:11)
[2017-12-13 08:28] VITALS: BP 187/88; PULSE 61; TEMP 98; O2SAT 97
[2017-12-13] MEDS: Famotidine 20 MG Tablet PO SCH (08:31)
[2017-12-13] MEDS: Lisinopril 5 MG Tablet PO SCH (08:31)
[2017-12-13] MEDS: Senna/Docusate Sodium 8.6/50 MG Tablet PO SCH (08:32)
--- NOTE | 2017-12-13 08:59 | P.DS ---
Date of admission: 12/11/17 17:25 Primary care physician: UNKNOWN Brief History from admission: Patient is a 77-year-old male who came by his own private vehicle driven by his family. Patient was standing on the practice range about to take some practice golf swings with a bucket of balls when he bent over and got dizzy and fell down at least 3 times. Bystanders wanted to call 911 but he called his family and went to the lobby. [place]. Patient was brought into the emergency department by family for further evaluation. Did have some heart palpitations. But comes and goes. Denies any headache, denies any visual changes, denies any chest pain, denies any back pain, denies any abdominal pain. Patient denies any nausea, vomiting, or diarrhea. She became very diaphoretic during the episodes. He felt faint and passed out. He felt lightheaded and some palpitations. Has never had anything like this before Past medical history is significant for osteoarthritis, hypothyroidism, hypertension and hypercholesterolemia. DS: Summary Hospital Course: Mr. Mera is a 77-year-old male. He was admitted secondary to presyncope. Couple episode occurred while he was golfing in a driving range. Presyncopal episode was transient. Syncope workup while hospitalized was negative. Telemetry did show some PVCs and tachycardia intermittently. This has resolved by the day of discharge. Cardiology has evaluated this patient, d-dimer negative. Cardiology has cleared this patient for discharge with stability overnight. Patient at this point is medically stable and cleared for discharge home today. - Time Spent with Patient Total time spent providing and/or coordinating discharge services: Less than 30 minutes - Quality: VTE Deep Vein Thrombosis/Pulmonary Embolism Present on Admission: No Exam Vital signs: Vital Signs 12/12/17 12:00 12/12/17 16:00 12/12/17 20:00 Temperature 97.8 F 97.9 F 98.2 F Pulse Rate 76 74 64 Respiratory Rate 18 20 18 Blood Pressure 189/90 H 137/65 136/82 Pulse Oximetry 93 L 94 L 95 12/13/17 00:00 12/13/17 04:00 12/13/17 08:00 Temperature 97.4 F L 98.1 F 98.0 F Pulse Rate 56 L 53 L 61 Respiratory Rate 16 16 16 Blood Pressure 131/73 136/74 187/88 H Pulse Oximetry 97 96 97 Intake & Output 12/12/17 12/13/17 12/13/17 18:59 06:59 18:59 Intake Total 1620 / 1620 1240 / 1240 1000 / 1000 Output Total 550 / 550 450 / 450 Balance 1070 / 1070 790 / 790 1000 / 1000 Weight 100.7 kg Intake: IV 980 / 980 1000 / 1000 1000 / 1000 NS Inj 1,000 ML @ 100 mls/hr IV 980 / 980 1000 / 1000 1000 / 1000 .CONT .Q10H [facility] Rx#:[id number] Oral 640 / 640 240 / 240 Output: Urine 550 / 550 450 / 450 Other: # Voids 1 Date of Last Bowel Movement 12/12/17 # Bowel Movements 0 Weight On Admission 100.698 kg Results Procedures completed during hospitalization: none Labs on day of discharge: Labs from last 24 hours 12/13/17 12/12/17 00:35 02:36 D-Dimer Quant (PE/DVT) 0.35 Hemoglobin A1c 6.1 H - Impressions ITS Impressions Chest CTA 12/11/17 15:35 CONCLUSION: 1. The study is negative for pulmonary embolism. Head CT 12/11/17 15:35 CONCLUSION: 1. Senescent changes without acute intracranial abnormality. . Carotid Doppler Study 12/12/17 00:00 CONCLUSION: 1. Right Internal Carotid Artery: No significant stenosis or atherosclerotic plaque is visualized. 2. Left Internal Carotid Artery: Findings indicate <50% stenosis. 3. Solid and cystic 1.3 cm nodule is present in the right lobe the thyroid gland. Although not available for visual comparison, the 2012 examination also reported a 1.3 cm right thyroid nodule. Consider correlating with any other imaging studies to confirm stability. Discharge Plan - Discharge Disposition Patient Disposition: 01 Discharge Home - Discharge Condition Condition: Stable - Discharge Order Discharge Orders: Discharge Order (Routine); Ordered 12/13/17 Ordered By: Simon Luke - Discharge Details Anticipated Discharge Date: 12/13/17 - Physicians Team Primary Care Provider: UNKNOWN, Attending Provider: Simon Luke Other Providers: Tin Shanks MD
== END 2017-12-13 10:34 | disposition home or self-care (01) ==
LOC: NEDA 15:13 → NEPC 15:13 → NEPGCP 15:13 → NEDA 21:56 → NEPGCP 22:11
PROVIDERS: ADMIT Hospitalist; ATTEND Hospitalist